=== PATIENT | female | born 1960 | race African-American/Black ===

== ENCOUNTER 2022-12-08 19:21 | Inpatient (IN) | payer MEDICARE, MEDICAID ==
[~2022-12-08] VITALS: Ht 170.2 cm; Wt 63.1 kg
[2022-12-08 21:08] LABS: BASOPHILS % 0.9 % (0.0-2.0); EOSINOPHILS % 1.1 % (0.0-5.0); LYMPHOCYTES % 22.6 % (20.0-50.0); MEAN CORPUSCULAR HEMOGLOBIN 32.4 pg (28.0-32.0); MEAN CORPUSCULAR VOLUME 94.5 fL (81.0-99.0); MEAN PLATELET VOLUME 7.2 fl (7.4-10.4); MONOCYTES % 8.3 % (2.0-8.0); NEUTROPHILS % 67.1 % (40.0-76.0); PLATELET 368 x1000/uL (130-400); RED BLOOD CELL COUNT 4.02 mill/uL (4.2-5.4); RED CELL DISTRIBUTION WIDTH 15.1 % (11.6-14.6)
[2022-12-08 21:18] LABS: CHLORIDE 89 mEq/L (98-107)
[2022-12-08] MEDS ORDERED: CALCIUM CHLORIDE 1GM/10ML SYR IV ONE (22:00)
[2022-12-08] MEDS ORDERED: ALBUTEROL (0.083%) 2.5MG/3ML NEB HHN ONE (22:00)
[2022-12-08] MEDS ORDERED: SODIUM BICARBONATE 8.4% 1 MEQ/ML 50ML SYR IV ONE (22:00)
[2022-12-08] MEDS ORDERED: ALBUTEROL (0.083%) 2.5MG/3ML NEB HHN NR (23:45)
[2022-12-09] VITALS (38 sets, daily range): BP systolic 103–167; BP diastolic 31–88; PULSE 59–76; RESP 8–30; TEMP 97.8–98.8; O2SAT 100
[2022-12-09 00:10] LABS: CLARITY URINE TURBID (CLEAR); COLOR URINE YELLOW (YELLOW); KETONES URINE NEGATIVE (NEGATIVE); LEUKOCYTE ESTERASE URINE 2+ (NEGATIVE); NITRITE URINE NEGATIVE (NEGATIVE); OCCULT BLOOD URINE 1+ (NEGATIVE); PROTEIN URINE 3+ (NEGATIVE); SPECIFIC GRAVITY URINE 1.009 (1.005-1.030); UROBILINOGEN URINE 0.2 E.U./dL (0.2-1.0)
[2022-12-09] MEDS ORDERED: CEFTRIAXONE 1GM PREMIX 50 ML IV ONE (00:45)
[2022-12-09] MEDS ORDERED: ACETAMINOPHEN 325MG TABLET PO ONE (01:45)
[2022-12-09] MEDS ORDERED: AMIODARONE HCL 900 MG in DEXT 5% WATER 482 ML IV STA (01:54)
[2022-12-09] MEDS ORDERED: AMIODARONE HCL 50MG/ML 3ML VIAL IV ONE (02:00)
[2022-12-09] MEDS ORDERED: AMIODARONE HCL 900 MG in DEXT 5% WATER 482 ML IV NR (02:00)
[2022-12-09] MEDS ORDERED: MIDAZOLAM HCL 2 MG/2 ML VIAL IV ONE (02:30)
[2022-12-09] MEDS ORDERED: NOREPINEPHRINE 8MG/250ML PMX 250 ML IV ONE (03:00)
[2022-12-09] MEDS: LIDOCAINE 5% PATCH TOP SCH (05:35)
[2022-12-09] MEDS ORDERED: CALC0.5C10 MT (09:04)
[2022-12-09] MEDS ORDERED: MULT-1146 MT (09:04)
[2022-12-09] MEDS ORDERED: AMLO10TA80 MT (09:04)
[2022-12-09] MEDS ORDERED: LIDOCAINE HCL 1% 10 MG/ML 10ML VIAL ONE (09:38)
[2022-12-09] MEDS ORDERED: POTASSIUM CHLORIDE INJ 40 MEQ in DEXT 5% WATER 250 ML IV NR (10:30)
[2022-12-09] MEDS ORDERED: NICOTINE 7MG PATCH TD NR (12:00)
[2022-12-09] MEDS: HEPARIN 5000 UNITS/ML VIAL SUBCUT SCH ×2 (12:56→22:47)
[2022-12-09] MEDS ORDERED: NALOXONE HCL 0.4MG/ML VIAL IV PRN (18:30)
[2022-12-09] MEDS: HYDROCODONE/ACETAMINOPHEN 10/325MG TABLET PO PRN (18:50)
[2022-12-09] MEDS ORDERED: CEFTRIAXONE 1GM PREMIX 50 ML IV SCH (21:45)
[2022-12-10] VITALS (66 sets, daily range): BP systolic 71–189; BP diastolic 23–110; PULSE 56–120; RESP 11–42; TEMP 97.6–99.2
[2022-12-10] MEDS: CEFTRIAXONE 1,000 MG in DEXTROSE 5% WATER 50 ML IV SCH (01:20)
[2022-12-10] MEDS: LIDOCAINE 5% PATCH TOP SCH (01:21)
[2022-12-10] MEDS ORDERED: DILTIAZEM HCL 5MG/ML 5ML VIAL IV NR (04:15)
[2022-12-10 05:26] LABS: BASOPHILS % 0.9 % (0.0-2.0); EOSINOPHILS % 3.4 % (0.0-5.0); HEMATOCRIT. 32.7 % (36.0-48.0); HEMOGLOBIN. 10.9 g/dL (12.0-16.0); LYMPHOCYTES % 35.8 % (20.0-50.0); MEAN CORPUSCULAR HEMOGLOBIN 32.3 pg (28.0-32.0); MEAN CORPUSCULAR VOLUME 97.1 fL (81.0-99.0); MEAN PLATELET VOLUME 7.6 fl (7.4-10.4); MONOCYTES % 12.2 % (2.0-8.0); NEUTROPHILS % 47.7 % (40.0-76.0); PLATELET 342 x1000/uL (130-400); RED BLOOD CELL COUNT 3.36 mill/uL (4.2-5.4); RED CELL DISTRIBUTION WIDTH 14.8 % (11.6-14.6)
[2022-12-10] MEDS ORDERED: DILTIAZEM HCL 60MG TABLET PO SCH (06:00)
[2022-12-10] MEDS: HEPARIN 5000 UNITS/ML VIAL SUBCUT SCH ×2 (08:37→21:15)
[2022-12-10] MEDS: NICOTINE 7MG PATCH TD SCH (08:37)
[2022-12-10] MEDS: AMIODARONE HCL 200 MG TABLET PO SCH ×2 (10:35→21:15)
[2022-12-10 12:21] LABS: HEPATITIS B SURFACE ANTIGEN NEGATIVE
[2022-12-10] MEDS: DILTIAZEM HCL 30MG TABLET PO SCH ×3 (12:30→23:34)
[2022-12-10] MEDS: HYDROCODONE/ACETAMINOPHEN 10/325MG TABLET PO PRN ×2 (12:31→18:48)
[2022-12-11] VITALS (77 sets, daily range): BP systolic 82–154; BP diastolic 37–82; PULSE 58–82; RESP 9–27; TEMP 98–99.1
[2022-12-11] MEDS: CEFTRIAXONE 1,000 MG in DEXTROSE 5% WATER 50 ML IV SCH (01:21)
[2022-12-11] MEDS: DILTIAZEM HCL 30MG TABLET PO SCH (05:34)
[2022-12-11] MEDS: HEPARIN 5000 UNITS/ML VIAL SUBCUT SCH ×2 (09:00→20:40)
[2022-12-11] MEDS ORDERED: HEPARIN 1000 UNITS/ML 10ML ONE (09:43)
[2022-12-11] MEDS ORDERED: IODIXANOL 320MG/ML 100 ML BOTTLE IV ONE (09:43)
[2022-12-11] MEDS ORDERED: LIDOCAINE HCL/PF 2% 20MG/ML 5 ML/VIAL ONE (09:43)
[2022-12-11] MEDS ORDERED: FENTANYL CITRATE/PF 50MCG/ML 2ML VIAL ONE (10:00)
[2022-12-11] MEDS ORDERED: MIDAZOLAM HCL 2 MG/2 ML VIAL ONE (10:00)
[2022-12-11] MEDS ORDERED: ONDANSETRON HCL 4MG/2ML INJ IV PRN (11:00)
[2022-12-11] MEDS ORDERED: ATROPINE SULFATE 1MG/10ML SYR IV PRN (11:00)
[2022-12-11] MEDS ORDERED: ACETAMINOPHEN 325MG TABLET PO PRN (11:00)
[2022-12-11 11:10] LABS: BASOPHILS % 1.4 % (0.0-2.0); EOSINOPHILS % 4.8 % (0.0-5.0); HEMATOCRIT. 33.1 % (36.0-48.0); HEMOGLOBIN. 10.9 g/dL (12.0-16.0); LYMPHOCYTES % 33.6 % (20.0-50.0); MEAN CORPUSCULAR HEMOGLOBIN 32.1 pg (28.0-32.0); MEAN CORPUSCULAR VOLUME 97.6 fL (81.0-99.0); MEAN PLATELET VOLUME 8.2 fl (7.4-10.4); MONOCYTES % 11.1 % (2.0-8.0); NEUTROPHILS % 49.1 % (40.0-76.0); PLATELET 326 x1000/uL (130-400); RED BLOOD CELL COUNT 3.39 mill/uL (4.2-5.4)
[2022-12-11 11:21] LABS: T4 FREE 1.36 ng/dL (0.76-1.46)
[2022-12-11] MEDS: METOPROLOL TARTRATE 25MG TABLET PO SCH ×3 (12:24→21:00)
[2022-12-11] MEDS: HYDROCODONE/ACETAMINOPHEN 10/325MG TABLET PO PRN ×2 (12:24→19:08)
[2022-12-11] MEDS: NICOTINE 7MG PATCH TD SCH (12:24)
[2022-12-12] VITALS (57 sets, daily range): BP systolic 80–162; BP diastolic 27–116; PULSE 57–122; RESP 11–22; TEMP 97.8–99
[2022-12-12] MEDS: CEFTRIAXONE 1,000 MG in DEXTROSE 5% WATER 50 ML IV SCH (00:31)
[2022-12-12] MEDS: HYDROCODONE/ACETAMINOPHEN 10/325MG TABLET PO PRN ×3 (00:31→19:02)
[2022-12-12 05:50] LABS: BASOPHILS % 0.8 % (0.0-2.0); EOSINOPHILS % 4.4 % (0.0-5.0); HEMATOCRIT. 31.3 % (36.0-48.0); HEMOGLOBIN. 10.1 g/dL (12.0-16.0); LYMPHOCYTES % 34.4 % (20.0-50.0); MEAN CORPUSCULAR HEMOGLOBIN 31.6 pg (28.0-32.0); MEAN CORPUSCULAR VOLUME 97.5 fL (81.0-99.0); MEAN PLATELET VOLUME 8.3 fl (7.4-10.4); NEUTROPHILS % 49.4 % (40.0-76.0); PLATELET 301 x1000/uL (130-400); RED BLOOD CELL COUNT 3.21 mill/uL (4.2-5.4); RED CELL DISTRIBUTION WIDTH 15.6 % (11.6-14.6)
[2022-12-12] MEDS ORDERED: NICARDIPINE 100MCG/ML 10ML VIAL (CATH LAB) IV ONE (07:00)
[2022-12-12] MEDS ORDERED: NITROGLYCERIN 50MCG/ML 10ML VIAL (CATH LAB) IV ONE (07:00)
[2022-12-12] MEDS: HEPARIN 5000 UNITS/ML VIAL SUBCUT SCH ×2 (08:59→22:49)
[2022-12-12] MEDS: METOPROLOL TARTRATE 25MG TABLET PO SCH (09:01)
[2022-12-12] MEDS: NICOTINE 7MG PATCH TD SCH (09:01)
[2022-12-12] MEDS: VERAPAMIL HCL 80 MG TABLET PO SCH (22:47)
[2022-12-13] VITALS (7 sets, daily range): BP systolic 93–141; BP diastolic 49–67; PULSE 65–94; RESP 18–20; TEMP 97.6–99.7; O2SAT 100
[2022-12-13] MEDS: CEFTRIAXONE 1,000 MG in DEXTROSE 5% WATER 50 ML IV SCH (00:56)
[2022-12-13] MEDS: VERAPAMIL HCL 80 MG TABLET PO SCH ×3 (06:00→16:52)
[2022-12-13 07:37] LABS: BASOPHILS % 0.9 % (0.0-2.0); EOSINOPHILS % 3.5 % (0.0-5.0); HEMATOCRIT. 32.7 % (36.0-48.0); HEMOGLOBIN. 10.5 g/dL (12.0-16.0); LYMPHOCYTES % 31.3 % (20.0-50.0); MEAN CORPUSCULAR HEMOGLOBIN 31.5 pg (28.0-32.0); MEAN CORPUSCULAR VOLUME 97.9 fL (81.0-99.0); MEAN PLATELET VOLUME 8.3 fl (7.4-10.4); MONOCYTES % 10.6 % (2.0-8.0); NEUTROPHILS % 53.7 % (40.0-76.0); PLATELET 309 x1000/uL (130-400); RED BLOOD CELL COUNT 3.34 mill/uL (4.2-5.4); RED CELL DISTRIBUTION WIDTH 15.1 % (11.6-14.6)
[2022-12-13] MEDS: HEPARIN 5000 UNITS/ML VIAL SUBCUT SCH (09:29)
[2022-12-13] MEDS ORDERED: VERA80TA7 PO (12:27)
[2022-12-13] MEDS: NICOTINE 7MG PATCH TD SCH (16:52)
== END 2022-12-13 18:45 | disposition home or self-care (01) | DRG 286 ==
LOC: ER 19:21 → MICUNO 12-09 04:17 → ENRESERV 12-09 06:48 → 8WST 12-12 18:17
PROVIDERS: ADMIT Internal Medicine; ATTEND Internal Medicine
PROC: 5A2204Z Restoration of Cardiac Rhythm, Single (ICD-10-PCS; principal; 2022-12-09)
PROC: 02HV33Z Insertion of Infusion Device into Superior Vena Cava, Percutaneous Approach (ICD-10-PCS; 2022-12-09)
PROC: B548ZZA Ultrasonography of Superior Vena Cava, Guidance (ICD-10-PCS; 2022-12-09)
PROC: 5A1D70Z Performance of Urinary Filtration, Intermittent, Less than 6 Hours Per Day (ICD-10-PCS; 2022-12-10)
PROC: 4A023N7 Measurement of Cardiac Sampling and Pressure, Left Heart, Percutaneous Approach (ICD-10-PCS; 2022-12-11)
PROC: B211YZZ Fluoroscopy of Multiple Coronary Arteries using Other Contrast (ICD-10-PCS; 2022-12-11)
PROC: B215YZZ Fluoroscopy of Left Heart using Other Contrast (ICD-10-PCS; 2022-12-11)
PROC: 5A1D70Z Performance of Urinary Filtration, Intermittent, Less than 6 Hours Per Day (ICD-10-PCS; 2022-12-12)
DX: I47.29 Other ventricular tachycardia (principal); N18.6 End stage renal disease; R57.0 Cardiogenic shock; N39.0 Urinary tract infection, site not specified; I12.0 Hypertensive chronic kidney disease with stage 5 chronic kidney disease or end stage renal disease; E87.5 Hyperkalemia; D63.1 Anemia in chronic kidney disease; F17.210 Nicotine dependence, cigarettes, uncomplicated; M19.90 Unspecified osteoarthritis, unspecified site; I35.8 Other nonrheumatic aortic valve disorders; Z99.2 Dependence on renal dialysis; Z79.899 Other long term (current) drug therapy
CPT/HCPCS: 36415; 36573; 71045; 72040; 72070; 72100; 80048; 80053; 81003; 83735; 84439; 84443; 84481; 84484; 85025; 86705; 86709; 86803; 87340; 90935; 93005; 93306; 94644; 99291; C1725; J0282; J0696; J1644; J2250; J3010; J3480; J3490; J7060; Q9967

== ENCOUNTER 2023-04-29 19:27 | Inpatient (IN) | payer MEDICARE, MEDICAID ==
[~2023-04-29] VITALS: Ht 170.2 cm; Wt 58.3 kg
[~2023-04-29 19:27] MED LIST: CALC0.5C10 MT; MULT-1146 MT; VERA80TA7 PO
[2023-04-29 21:16] LABS: BASOPHILS % 0.4 % (0.0-2.0); EOSINOPHILS % 0.6 % (0.0-5.0); HEMATOCRIT. 33.6 % (36.0-48.0); HEMOGLOBIN. 11.1 g/dL (12.0-16.0); LYMPHOCYTES % 14.9 % (20.0-50.0); MEAN CORPUSCULAR HEMOGLOBIN 31.3 pg (28.0-32.0); MEAN CORPUSCULAR VOLUME 94.8 fL (81.0-99.0); MEAN PLATELET VOLUME 7.7 fl (7.4-10.4); MONOCYTES % 10.5 % (2.0-8.0); NEUTROPHILS % 73.6 % (40.0-76.0); PLATELET 288 x1000/uL (130-400); RED BLOOD CELL COUNT 3.54 mill/uL (4.2-5.4); WHITE BLOOD COUNT 9.1 x1000/uL (4.5-11.0)
[2023-04-29 21:29] LABS: CHLORIDE 92 mEq/L (98-107); INDEX HEMOLYSI 1 (1-3); INDEX ICTERIC 1 (1-4); INDEX LIPEMIC 1 (1-3); POTASSIUM 3.6 mEq/L (3.5-5.1); SODIUM 137 mEq/L (136-145)
[2023-04-29 21:37] LABS: ALANINE AMINOTRANSFERASE 434 IU/L (13-61); ALBUMIN 3.7 g/dL (3.4-5.0); ASPARTATE AMINOTRANSFERASE 364 IU/L (15-37); BILIRUBIN TOTAL 0.2 mg/dL (0.1-1.0); CALCIUM 9.5 mg/dL (8.5-10.1); CARBON DIOXIDE 37 mEq/L (21-32); CREATININE 3.6 mg/dL (0.6-1.3); ETHANOL BLOOD < 10 mg/dL (<10); GLUCOSE 96 mg/dL (70-105); PROTEIN TOTAL 8.5 g/dL (6.0-8.3); UREA NITROGEN BLOOD 29 mg/dL (7-21)
[2023-04-30 02:00] VITALS: BP 109/67; PULSE 78; RESP 18; TEMP 97.3
[2023-04-30] MEDS ORDERED: TEMAZEPAM 15MG CAPSULE PO PRN (02:30)
[2023-04-30] MEDS ORDERED: HYDROCODONE/ACETAMINOPHEN 5/325MG TABLET PO PRN (02:30)
[2023-04-30] MEDS ORDERED: NALOXONE HCL 0.4MG/ML VIAL IV PRN (03:00)
[2023-04-30 04:00] VITALS: BP 101/53; PULSE 83; RESP 16; TEMP 97.8
[2023-04-30] MEDS ORDERED: LEVETIRACETAM 500MG PREMIX 100 ML IV NR (04:00)
[2023-04-30] MEDS: VERAPAMIL HCL 80 MG TABLET PO SCH ×3 (05:14→21:27)
[2023-04-30] MEDS ORDERED: PNEUMOCOCCAL 23-VAL P-SAC VAC 0.5 ML IM ONE (06:30)
[2023-04-30 08:00] VITALS: BP 107/55; PULSE 73; RESP 16; TEMP 97.4
[2023-04-30] MEDS: CALCITRIOL 0.25MCG CAPSULE PO SCH (08:48)
[2023-04-30] MEDS: HEPARIN 5000 UNITS/ML VIAL SUBCUT SCH ×2 (08:48→20:17)
[2023-04-30 08:49] LABS: BASOPHILS % 0.5 % (0.0-2.0); EOSINOPHILS % 1.5 % (0.0-5.0); HEMATOCRIT. 32.4 % (36.0-48.0); HEMOGLOBIN. 10.7 g/dL (12.0-16.0); LYMPHOCYTES % 28.5 % (20.0-50.0); MEAN CORPUSCULAR HEMOGLOBIN 31.8 pg (28.0-32.0); MEAN CORPUSCULAR HGB CONC 33.1 g/dL (31.0-37.0); MEAN CORPUSCULAR VOLUME 96.1 fL (81.0-99.0); MEAN PLATELET VOLUME 7.9 fl (7.4-10.4); MONOCYTES % 11.3 % (2.0-8.0); NEUTROPHILS % 58.2 % (40.0-76.0); PLATELET 304 x1000/uL (130-400); RED BLOOD CELL COUNT 3.37 mill/uL (4.2-5.4); RED CELL DISTRIBUTION WIDTH 15.3 % (11.6-14.6); WHITE BLOOD COUNT 7.4 x1000/uL (4.5-11.0)
[2023-04-30] MEDS ORDERED: MULTIVITAMINS,THER W-MINERALS TABLET PO SCH (09:00)
[2023-04-30 09:38] LABS: POTASSIUM 3.7 mEq/L (3.5-5.1)
[2023-04-30] MEDS ORDERED: ONDANSETRON HCL 4MG/2ML INJ IV PRN (10:15)
[2023-04-30] MEDS ORDERED: ACETAMINOPHEN 325MG TABLET PO PRN ×2 (10:15)
[2023-04-30 10:19] LABS: CREATININE 5.2 mg/dL (0.6-1.3)
[2023-04-30 12:00] VITALS: BP 129/63; PULSE 76; RESP 16; TEMP 97.6
[2023-04-30] MEDS: SEVELAMER CARBONATE 800 MG TABLET PO SCH ×3 (12:50→17:03)
[2023-04-30 14:17] LABS: INDEX HEMOLYSI 1 (1-3); INDEX ICTERIC 1 (1-4); INDEX LIPEMIC 1 (1-3)
[2023-04-30 14:25] LABS: ALANINE AMINOTRANSFERASE 287 IU/L (13-61); ALBUMIN 3.4 g/dL (3.4-5.0); ASPARTATE AMINOTRANSFERASE 168 IU/L (15-37); BILIRUBIN DIRECT < 0.1 mg/dL (0.0-0.2); BILIRUBIN TOTAL 0.3 mg/dL (0.1-1.0); PROTEIN TOTAL 7.6 g/dL (6.0-8.3)
[2023-04-30 16:49] LABS: HEPATITIS B SURFACE ANTIGEN NEGATIVE
[2023-04-30 17:15] LABS: HEPATITIS B CORE AB IGM NEGATIVE; HEPATITIS C VIR.AB 0.08 INDEXVAL (0.00-0.80)
[2023-04-30 17:17] LABS: HEPATITIS A AB IGM NEGATIVE (NEGATIVE)
[2023-04-30] MEDS: LEVETIRACETAM 500MG PREMIX 100 ML IV SCH (20:17)
[2023-04-30 20:39] VITALS: BP 131/57; PULSE 78; RESP 16; TEMP 97.8
[2023-04-30] MEDS ORDERED: ATORVASTATIN CALCIUM 40MG TABLET PO SCH (21:00)
[2023-04-30 22:22] LABS: CLARITY URINE CLOUDY (CLEAR); COLOR URINE YELLOW (YELLOW); GLUCOSE URINE NEGATIVE (NEGATIVE); KETONES URINE NEGATIVE (NEGATIVE); LEUKOCYTE ESTERASE URINE NEGATIVE (NEGATIVE); NITRITE URINE NEGATIVE (NEGATIVE); OCCULT BLOOD URINE NEGATIVE (NEGATIVE); PH URINE >=9.0 (4.5-8.0); PROTEIN URINE 3+ (NEGATIVE); SPECIFIC GRAVITY URINE 1.015 (1.005-1.030); UROBILINOGEN URINE 0.2 E.U./dL (0.2-1.0)
[2023-04-30 22:24] LABS: BACTERIA URINE NONE SEEN; RBC URINE NONE SEEN /hpf (0-2); SQUAMOUS EPITHELIAL CELL URINE 3+ /lpf (RARE/1+); YEAST URINE NONE SEEN
[2023-04-30 22:53] LABS: *AMPHETAMINES SCREEN URINE NEGATIVE (NEGATIVE); *BARBITURATES SCREEN URINE NEGATIVE (NEGATIVE); *BENZODIAZEPINES SCREEN URINE NEGATIVE (NEGATIVE); CANNABINOID URINE SCREEN NEGATIVE (NEGATIVE); ECSTASY MDMA SCREEN URINE NEGATIVE (NEGATIVE); METHADONE URINE SCREEN NEGATIVE (NEGATIVE); OPIATES URINE SCREEN NEGATIVE (NEGATIVE); PHENCYCLIDINE URINE SCREEN NEGATIVE (NEGATIVE)
[2023-04-30 22:56] LABS: *COCAINE SCREEN URINE NEGATIVE (NEGATIVE)
[2023-05-01] VITALS (11 sets, daily range): BP systolic 118–145; BP diastolic 48–84; PULSE 67–77; RESP 16–20; TEMP 97.3–98; O2SAT 99
[2023-05-01] MEDS: VERAPAMIL HCL 80 MG TABLET PO SCH ×2 (05:04→13:25)
[2023-05-01] MEDS: SEVELAMER CARBONATE 800 MG TABLET PO SCH ×2 (08:54→13:26)
[2023-05-01] MEDS: CALCITRIOL 0.25MCG CAPSULE PO SCH (08:55)
[2023-05-01] MEDS: HEPARIN 5000 UNITS/ML VIAL SUBCUT SCH (08:55)
[2023-05-01] MEDS: LEVETIRACETAM 500MG PREMIX 100 ML IV SCH (08:56)
[2023-05-01] MEDS ORDERED: FOLIC ACID/VITAMIN B COMP W-C TABLET PO SCH (09:00)
== END 2023-05-01 17:45 | disposition home or self-care (01) | DRG 100 ==
LOC: ER 19:27 → MICUSO 22:40 → 7WST 04-30 01:50
PROVIDERS: ADMIT Internal Medicine; ATTEND Internal Medicine
PROC: 5A1D70Z Performance of Urinary Filtration, Intermittent, Less than 6 Hours Per Day (ICD-10-PCS; principal; 2023-05-01)
PROC: 4A00X4Z Measurement of Central Nervous Electrical Activity, External Approach (ICD-10-PCS; 2023-05-01)
DX: G40.409 Other generalized epilepsy and epileptic syndromes, not intractable, without status epilepticus (principal); N18.6 End stage renal disease; I12.0 Hypertensive chronic kidney disease with stage 5 chronic kidney disease or end stage renal disease; E11.22 Type 2 diabetes mellitus with diabetic chronic kidney disease; D64.9 Anemia, unspecified; E78.5 Hyperlipidemia, unspecified; R74.01 Elevation of levels of liver transaminase levels; R74.8 Abnormal levels of other serum enzymes; F17.210 Nicotine dependence, cigarettes, uncomplicated; Z99.2 Dependence on renal dialysis; Z88.6 Allergy status to analgesic agent; Z90.710 Acquired absence of both cervix and uterus; Z79.899 Other long term (current) drug therapy
CPT/HCPCS: 36415; 70551; 71045; 76700; 80048; 80053; 80061; 80076; 80305; 80320; 81003; 85025; 86705; 86709; 86803; 87340; 90732; 90935; 93880; 95816; 99285; J1644; J1953; G0480